=== PATIENT | male | born 1985 ===

== ENCOUNTER 2017-02-20 10:55 | Emergency (ER) | payer OTHER ==
[2017-02-20 10:58] VITALS: BMI 34.2
[2017-02-20 11:01] VITALS: BP 109/85; PULSE 77; RESP 16; TEMP 98.3; O2SAT 97
[2017-02-20] MEDS ORDERED: Albuterol 0.083% Inhal Sol (2.5 mg/3 mL) UD INH ONE (11:52)
[2017-02-20] MEDS ORDERED: Albuterol 0.083% Inhal Sol (2.5 mg/3 mL) UD ONE (12:02)
--- NOTE | 2017-02-20 12:10 | ED PDOC ---
HPI: General Adult Time Seen by Provider: 02/20/17 11:20 Chief Complaint (Nursing): Flu-like Symptoms Chief Complaint (Provider): Cough History Per: Patient History/Exam Limitations: no limitations Onset/Duration Of Symptoms: Days (x 3) Current Symptoms Are (Timing): Still Present Additional Complaint(s): Ivan is a 31 y/o male with no past medical history who presents to the ED c/o cough for the past 3 days with clear phlegm. He also complains of associated subjective fever and stuffy nose but denies nausea, vomiting, or diarrhea. PMD: None Past Medical History Reviewed: Historical Data, Nursing Documentation, Vital Signs Vital Signs: Last Vital Signs Temp 98.3 F 02/20/17 10:58 Pulse 77 02/20/17 10:58 Resp 16 02/20/17 13:24 BP 109/85 02/20/17 10:58 Pulse Ox 97 02/20/17 13:30 - Medical History PMH: No Chronic Diseases - Surgical History Surgical History: No Surg Hx - Family History Family History: States: Unknown Family Hx - Social History Current smoker - smoking cessation education provided: No Alcohol: None Drugs: Denies - Home Medications Home Medications: Ambulatory Orders Medication Instructions Recorded Benzonatate [Tessalon Perles] 100 mg PO Q6 PRN #20 sgl 02/07/14 Azithromycin [Zithromax] 250 mg PO DAILY #6 cap 02/09/14 Codeine Phos/Phenyleph HCl/P 5 ml PO Q6H #100 syr 02/09/14 [Phenergan Vc W/Codeine 120 ml] Azithromycin [Zithromax Z-Primitivo] 250 mg PO DAILY #1 packet 05/01/15 Benzonatate 200 mg PO TID PRN #20 capsule 05/01/15 Cyclobenzaprine [Cyclobenzaprine 10 mg PO QPM #5 tab 09/21/15 HCl] Cyclobenzaprine [Cyclobenzaprine 10 mg PO Q8 PRN #12 tab 10/12/15 HCl] Ibuprofen [Motrin] 600 mg PO TID PRN #30 tab 10/12/15 Dextromethorphan HBr [Cough 15 mg PO BID #10 capsule 11/26/15 Control] Guaifenesin [Mucinex] 600 mg PO BID #14 tab.er.12h 11/26/15 - Allergies Allergies/Adverse Reactions: Allergies Allergy/AdvReac Type Severity Reaction Status Date / Time No Known Allergies Allergy Verified 10/12/15 18:00 Review of Systems ROS Statement: Except As Marked, All Systems Reviewed And Found Negative Constitutional: Positive for: Fever (subjective) ENT: Positive for: Nose Congestion Respiratory: Positive for: Cough (clear phlegm) Gastrointestinal: Negative for: Nausea, Vomiting, Diarrhea Physical Exam - Reviewed Nursing Documentation Reviewed: Yes Vital Signs Reviewed: Yes - Physical Exam Appears: Positive for: Well, Non-toxic, No Acute Distress Skin: Positive for: Normal Color, Warm, DRY Eye Exam: Positive for: Normal appearance ENT: Positive for: Normal ENT Inspection Cardiovascular/Chest: Positive for: Regular Rate, Rhythm. Negative for: Murmur Respiratory: Positive for: Normal Breath Sounds. Negative for: Respiratory Distress Gastrointestinal/Abdominal: Positive for: Normal Exam, Bowel Sounds, Soft. Negative for: Tenderness Extremity: Positive for: Normal ROM Neurologic/Psych: Positive for: Alert, Oriented - ECG O2 Sat by Pulse Oximetry: 97 (RA) Pulse Ox Interpretation: Normal Medical Decision Making Medical Decision Making: Time: 11:45 Initial Impression: URI symptoms. Rule out flu Initial Plan: --Albuterol --Peak flow pre/post --Influenza A B Time: 12:03 --Patient negative for flu pt reports feeling better --Patient stable for discharge home Scribe Attestation: Documented by John Baez, acting as a scribe for Vicky Wong MD. Provider Scribe Attestation: All medical record entries made by the Scribe were at my direction and personally dictated by me. I have reviewed the chart and agree that the record accurately reflects my personal performance of the history, physical exam, medical decision making, and the department course for this patient. I have also personally directed, reviewed, and agree with the discharge instructions and disposition. Disposition - Clinical Impression Clinical Impression: Viral illness - Patient ED Disposition Is Patient to be Admitted: No Counseled Patient/Family Regarding: Studies Performed, Diagnosis, Need For Followup, Rx Given - Disposition Referrals: [facility] [Outside] [facility] [Outside] Disposition: Routine/Home Disposition Time: 13:00 Condition: IMPROVED Additional Instructions: follow up with your primary doctor in 1-2 days return to the ED with any worsening or concerning symptoms. Instructions: Viral Syndrome (ED) Forms: [employer] ([place])
== END 2017-02-20 13:24 | disposition home or self-care (01) ==
LOC: H.ER 10:55
DX: J06.9 Acute upper respiratory infection, unspecified (principal)